=== PATIENT | female | born 1980 | race Caucasian/White ===

== ENCOUNTER 2019-12-28 14:40 | Outpatient (REF) | payer OTHER, SELFPAY ==
[2019-12-28 15:52] LABS: Glucose Urine UA NEG (NEG); Leukocyte Esterase Urine NEG (NEG); Nitrite Urine NEG (NEG); PH 6.5 (5.0-8.0); Urine Blood TRACE (NEG); Urine Ketones NEG (NEG); Urine Protein NEG (NEG-TRACE)
[2019-12-28 15:55] LABS: Appearance Urine CLEAR; Color Urine YELLOW
[2019-12-28 16:05] LABS: Squamous Epithelial Cell Urine TRACE /LPF; WBC Urine 0 /HPF (0-4)
[2019-12-28 16:20] LABS: Anion Gap 13 (12-20); Blood Urea Nitrogen 13 mg/dL (9-16); Calcium 9.2 mg/dL (8.4-10.2); Carbon Dioxide 24 mmol/L (22-29); Chloride 104 mmol/L (96-108); Estimated Glomerular Filt Rate > 60; Potassium 3.8 mmol/l (3.3-5.1); Sodium 137 mmol/L (135-145)
[2019-12-28 16:22] LABS: Creatinine Urine 34.47 mg/dL; Microalbumin Urine < 5.0 mg/L
== END 2019-12-28 14:41 | disposition home or self-care (01) ==
LOC: HO.LAB 14:40
PROVIDERS: PCP Internal Medicine; Visit Provider Internal Medicine Hypertension Specialist
DX: R80.9 Proteinuria, unspecified (principal); R31.9 Hematuria, unspecified
CPT/HCPCS: 80051; 81001; 82043; 82310; 82565; 84520

== ENCOUNTER 2020-01-05 13:29 | Outpatient (REF) | payer OTHER, SELFPAY ==
[2020-01-05 13:48] LABS: COVID-19 Test Negative (Negative)
== END 2020-01-05 13:30 | disposition home or self-care (01) ==
LOC: HO.LAB 13:29
PROVIDERS: Visit Provider Internal Medicine
DX: Z20.828 Contact with and (suspected) exposure to other viral communicable diseases (principal)
CPT/HCPCS: 87635

== ENCOUNTER 2020-01-11 11:35 | Outpatient (REF) | payer OTHER, SELFPAY ==
[2020-01-11 12:01] LABS: COVID-19 Test Negative (Negative)
== END 2020-01-11 11:36 | disposition home or self-care (01) ==
LOC: HO.LAB 11:35
PROVIDERS: Visit Provider Internal Medicine
DX: Z20.828 Contact with and (suspected) exposure to other viral communicable diseases (principal)
CPT/HCPCS: 87635

== ENCOUNTER 2020-01-15 12:14 | Outpatient (REF) | payer OTHER, SELFPAY ==
[2020-01-15 12:31] LABS: COVID-19 Test Negative (Negative)
== END 2020-01-15 12:15 | disposition home or self-care (01) ==
LOC: HO.LAB 12:14
PROVIDERS: Visit Provider Internal Medicine
DX: Z20.828 Contact with and (suspected) exposure to other viral communicable diseases (principal)
CPT/HCPCS: 87635

== ENCOUNTER 2020-02-02 11:26 | Outpatient (REF) | payer OTHER, SELFPAY ==
[2020-02-02 12:22] LABS: COVID-19 Test Negative (Negative)
== END 2020-02-02 11:27 | disposition home or self-care (01) ==
LOC: HO.EMPCOV 11:26
PROVIDERS: Visit Provider Internal Medicine
DX: Z20.828 Contact with and (suspected) exposure to other viral communicable diseases (principal)
CPT/HCPCS: 87635; C9803

== ENCOUNTER 2020-03-18 11:26 | Outpatient (REF) | payer OTHER, SELFPAY ==
[2020-03-18 11:56] LABS: COVID-19 Test Negative (Negative)
== END 2020-03-18 11:27 | disposition home or self-care (01) ==
LOC: HO.EMPCOV 11:26
PROVIDERS: Visit Provider Internal Medicine
DX: Z20.828 Contact with and (suspected) exposure to other viral communicable diseases (principal)
CPT/HCPCS: 87635; C9803

== ENCOUNTER 2021-04-01 17:39 | Outpatient (REF) | payer OTHER, SELFPAY ==
[2021-04-01 18:14] LABS: COVID-19 Test Negative (Negative)
== END 2021-04-01 17:40 | disposition home or self-care (01) ==
LOC: HO.LAB 17:39
PROVIDERS: Visit Provider Internal Medicine
DX: Z20.822 Contact with and (suspected) exposure to COVID-19 (principal)
CPT/HCPCS: 87635

== ENCOUNTER 2021-11-22 14:03 | Outpatient (REF) | payer OTHER, SELFPAY ==
[2021-11-22 14:32] LABS: COVID-19 Test Negative (Negative)
== END 2021-11-22 14:04 | disposition home or self-care (01) ==
LOC: HO.LAB 14:03
PROVIDERS: Absent Provider Internal Medicine; PCP Internal Medicine; Visit Provider Internal Medicine
DX: Z20.822 Contact with and (suspected) exposure to COVID-19 (principal)
CPT/HCPCS: 87635

== ENCOUNTER 2021-11-25 11:11 | Outpatient (REF) | payer OTHER, SELFPAY ==
[2021-11-25 11:59] LABS: COVID-19 Test Negative (Negative); IDNOW Serial# 16C4AD1C
== END 2021-11-25 11:12 | disposition home or self-care (01) ==
LOC: HO.LAB 11:11
PROVIDERS: Visit Provider Internal Medicine
DX: Z20.822 Contact with and (suspected) exposure to COVID-19 (principal)
CPT/HCPCS: 87635

== ENCOUNTER 2021-11-29 14:40 | Outpatient (REF) | payer OTHER, SELFPAY ==
[2021-11-29 15:39] LABS: Influenza A PCR NEGATIVE (Negative); Influenza B PCR NEGATIVE (Negative); Resp Syncy Virus RNA Qual PCR NEGATIVE (Negative); SARS COV2 PCR INHOUSE NEGATIVE (Negative)
== END 2021-11-29 14:41 | disposition home or self-care (01) ==
LOC: HO.LAB 14:40
PROVIDERS: PCP Internal Medicine; Visit Provider Internal Medicine
DX: Z20.822 Contact with and (suspected) exposure to COVID-19 (principal)
CPT/HCPCS: 0241U

== ENCOUNTER 2022-05-03 12:21 | Outpatient (REF) | payer OTHER, SELFPAY ==
[2022-05-03 12:49] LABS: COVID-19 Test Negative (Negative); IDNOW Serial# 16C4AD1C
== END 2022-05-03 12:22 | disposition home or self-care (01) ==
LOC: HO.LAB 12:21
PROVIDERS: Visit Provider Internal Medicine
DX: Z20.822 Contact with and (suspected) exposure to COVID-19 (principal)
CPT/HCPCS: 87635

== ENCOUNTER 2022-12-30 07:58 | Outpatient (REF) | payer OTHER, SELFPAY ==
[2022-12-30 11:18] LABS: Microalbum/Creatinine Ratio Ur 44.7 ug/mg cr (<30)
== END 2022-12-30 07:59 | disposition home or self-care (01) ==
LOC: HO.LAB 07:58
PROVIDERS: PCP Internal Medicine; Visit Provider Internal Medicine
DX: Z00.00 Encounter for general adult medical examination without abnormal findings (principal); I10 Essential (primary) hypertension; M72.2 Plantar fascial fibromatosis; R80.8 Other proteinuria; Z90.710 Acquired absence of both cervix and uterus
CPT/HCPCS: 36415; 80053; 80061; 82043; 82570; 85025

== ENCOUNTER 2023-01-19 11:33 | Outpatient (REF) | payer OTHER, SELFPAY ==
--- NOTE | ~2023-01-19 | MM_ITS ---
EXAMINATION: MM SCREENING DIGITAL BREAST TOMOSYNTHESIS, BILATERAL CLINICAL INFORMATION: Screening. Asymptomatic. COMPARISON: Mammography: This is a baseline study. TECHNIQUE: Digital breast tomosynthesis is performed in both the craniocaudal and mediolateral oblique views along with computer-aided detection (CAD). Synthesized 2D images are generated from the tomosynthesis. FINDINGS: There are scattered areas of fibroglandular density (ACR BI-RADS breast composition Category b). There are no significant masses, abnormal calcifications, or other abnormalities. MM/MM tomosynthesis screening BI IMPRESSION: No mammographic evidence of malignancy. ASSESSMENT: BI-RADS BI-RADS 1 - Negative RECOMMENDATION: Routine annual mammography screening. 1 year F/U This examination should not preclude the clinical evaluation of a suspicious palpable abnormality. This patient's information was entered into a reminder system with a target due date for their next mammogram.
== END 2023-01-19 11:34 | disposition home or self-care (01) ==
LOC: HO.MAMMO 11:33
PROVIDERS: PCP Internal Medicine; Visit Provider Internal Medicine
DX: Z12.31 Encounter for screening mammogram for malignant neoplasm of breast (principal)
CPT/HCPCS: 77063; 77067

== ENCOUNTER → 2023-01-19 11:45 | Outpatient (BNV) | payer OTHER, SELFPAY | PROVIDERS: PCP Internal Medicine; Visit Provider Radiology Diagnostic Radiology | DX: Z12.31 Encounter for screening mammogram for malignant neoplasm of breast (principal) | CPT/HCPCS: 77063; 77067 ==

== ENCOUNTER 2024-05-30 14:09 | Outpatient (REF) | payer OTHER, SELFPAY ==
[2024-05-30 14:27] LABS: MANUAL DIFF FLAG NO
[2024-05-30 14:36] LABS: Basophils Percent Auto 0.2 % (0-2); Eosinophils Percent Auto 0.3 % (0-4); Hematocrit 39.5 % (37.0-47.0); Imm Gran Abs Auto 0.05 X10*3/uL (0.00-0.03); Imm Gran Pct Auto 0.5 % (0.0-0.4); Lymphocytes Absolute Auto 1.2 X10*3/uL (1.2-4.9); Mean Corpuscular HGB Conc 35.4 g/dl (31.0-35.0); Mean Corpuscular Hemoglobin 31.6 pg (27.0-33.0); Mean Corpuscular Volume 89.2 fL (80.0-98.0); Mean Platelet Volume 10.1 fL (9.4-12.3); Monocytes Absolute Auto 0.5 X10*3/uL (0.1-1.2); Monocytes Percent Auto 4.4 % (2-11); Neutrophils Absolute Auto 9.1 x10*3/uL (2.0-8.3); Neutrophils Percent Auto 83.6 % (45-73); Platelet Count 258 X10*3/uL (160-400); Red Blood Count 4.43 X10*6/uL (4.20-5.50); Red Cell Distribution Width 12.3 % (11.0-16.0); White Blood Count 10.9 X10*3/uL (4.8-10.8)
[2024-05-30 15:16] LABS: Erythrocyte Sedimentation Rate 3 MM/HR (0-20)
[2024-05-30 15:51] LABS: Rheumatoid Factor < 13.0 IU/mL (<15.0)
[2024-05-30 15:58] LABS: Alanine Aminotransferase 14 U/L (0-31); Albumin Level 4.1 g/dL (3.5-5.0); Anion Gap 10 (12-20); Aspartate Amino Transferase 20 U/L (5-31); Bilirubin Total 0.3 mg/dL (0.0-1.0); Blood Urea Nitrogen 13 mg/dL (9-16); Calcium 9.6 mg/dL (8.4-10.2); Carbon Dioxide 26 mmol/L (22-29); Chloride 109 mmol/L (96-108); Estimated Glomerular Filt Rate > 60; Glucose Random 92 mg/dL (60-115); Sodium 141 mmol/L (135-145); Total Protein 7.1 g/dL (6.5-8.0)
[2024-05-30 18:22] LABS: Alkaline Phosphatase 61 U/L (39-117)
[2024-05-31 18:54] LABS: Anti DNA DS Antibody <1 IU/mL; Antibody to SS-A Antigen <1.0 NEG AI (<1.0 NEG); Antibody to SS-B Antigen <1.0 NEG AI (<1.0 NEG)
[2024-06-05 10:13] LABS: Anti Nuclear Antibody Screen NEGATIVE (NEGATIVE)
== END 2024-05-30 14:10 | disposition home or self-care (01) ==
LOC: HO.LAB 14:09
PROVIDERS: PCP Internal Medicine; Visit Provider Physician Assistant
DX: L30.9 Dermatitis, unspecified (principal)
CPT/HCPCS: 36415; 80053; 85025; 85652; 86038; 86225; 86235; 86431

== ENCOUNTER 2024-06-23 14:03 | Outpatient (REF) | payer OTHER, SELFPAY ==
[2024-06-23 15:21] LABS: Thyroid Stimulating Hormone 1.18 uIU/mL (0.32-4.0)
== END 2024-06-23 14:04 | disposition home or self-care (01) ==
LOC: HO.LAB 14:03
PROVIDERS: PCP Internal Medicine; Visit Provider Internal Medicine
DX: I10 Essential (primary) hypertension (principal); R10.31 Right lower quadrant pain; R80.8 Other proteinuria
CPT/HCPCS: 36415; 84443

== ENCOUNTER 2024-07-12 11:16 | Outpatient (AMB) | payer OTHER, SELFPAY ==
[2024-07-12 11:22] VITALS: BP 136/86; PULSE 68; TEMP 36.3; O2SAT 99; BMI 28.4
--- NOTE | 2024-07-12 11:22 | A.OFFPC_ITS ---
Vital Signs 07/12/24 11:22 Height 5 ft 3 in Weight 160 lb 6 oz BMI 28.4 BP 136/86 Blood Pressure Location Rt brachial Position Sitting Pulse 68 Pulse Source Pulse Oximeter Temp 97.3 F Temp Source Temporal Artery Scan Pulse Oximetry (%) 99 Oxygen Delivery Method Room Air Intake Visit Reasons: establish care Market Survey Representative Required: No Accompanied by: Self / Same As Patient Allergies No Known Allergies [No Known Allergies*] Allergy (Verified 07/12/24 11:30) Medication List - Last Reconciled 07/12/24 by Zhang Daniels PA-C No Known Home Meds Tobacco use date assessed: 07/12/24 Dental Screening Dental Screen Date: 07/12/24 Did you have a dental visit in the last 12 months?: Yes Did you have a dental problem in the last 6 months where you did not have access to dental care?: No Was dental information given to patient?: Patient has dentist HPI [facility] HPI Details The patient is a 44-year-old female presenting to [facility] with concerns about kidney function and recent dermatological issues. Proteinurea: She has a past medical history of proteinuria and hematuria, previously treated with lisinopril, but has not engaged in follow-up with nephrology for several years. She discontinued lisinopril due to adverse effects, namely dizziness. ? Dermatitis : In January of last year, the patient developed a rash and subsequent hair loss. Evaluation by dermatology determined a diagnosis of dermatitis, supported by a biopsy. She reports significant hair loss from her scalp. Allergy testing identified multiple contact allergies, impacting her ability to use standard topical products. The patient also notes prior thorough screening for autoimmune conditions and thyroid dysfunction, all of which returned normal results. Additionally, the patient's family has a significant history of cancer; her mother from widespread squamous cell carcinoma, and her uncle succumbed to oral cancer. Despite this family history, there is no known familial history of colon cancer. She has resumed smoking cigars after prior cessation, consuming about two to three cigars daily. [facility] Family History (Updated 07/12/24 @ 11:38 by Zhang Daniels PA-C) Mother Squamous cell cancer of buccal mucosa Social History (Updated 07/12/24 @ 11:39 by Zhang Daniels PA-C) Housing: House Patient Tobacco Use Status: Current someday Tobacco user Tobacco use type: Cigar e-Cigarette/Vaping Use: Never Used service: No Current occupational status: employed Current occupation: [employer] Cognitive needs: No Hearing needs: No Vision needs: No Questionnaire PHQ-9 Over the last 2 weeks, how often have you been bothered by any of the following problems? 1. Little interest or pleasure in doing things: not at all 2. Feeling down, depressed, or hopeless: not at all 3. Trouble falling or staying asleep, or sleeping too much: not at all 4. Feeling tired or having little energy: several days 5. Poor appetite or overeating: not at all 6. Feeling bad about yourself - or that you are a failure or have let yourself or your family down: not at all 7. Trouble concentrating on things, such as reading the newspaper or watching television: not at all 8. Moving or speaking so slowly that other people could have noticed. Or the opposite - being so fidgety or restless that you have been moving around a lot more than usual: not at all 9. Thoughts that you would be better off or of hurting yourself in some way: not at all Total score: 1 Depression Screening Interpretation: Negative Depression Screening Done: Yes 61736 - PHQ-9 Billing: Yes Source: Developed by Drs. Anthony Ochoa, Angela Mesa, Bart Lyons and colleagues, with an educational aria from [employer]. Thrive Questionnaire Date Thrive assessed: 07/12/24 I am a: Patient What is your living situation today?: I have a steady place to live Within the past 12 months, did the food you bought not last and you didn't have the money to get more?: Never true Within the past 12 months, did you worry whether your food would run out before you got money to buy more?: Never true Do you have trouble paying for medicines?: No Do you have trouble getting transportation to medical appointments?: No Do you have trouble paying your heating and electricity bill?: No Do you have trouble taking care of your child, family member or friend?: No Do you have trouble with day-to-day activities such as bathing, preparing meals, shopping, managing finances, etc.?: No Are you currently unemployed and looking for a job?: No Are you interested in more education?: No Please select the resources that you would like help with: None Currently or been in a relationship where the following occur: No concerns reported THRIVE Score: 0 AUDIT C Alcohol Use Questionnaire (AUDIT-C) 1. How often do you have a drink containing alcohol?: 4 or more times a week 2. How many drinks containing alcohol do you have on a typical day when you are drinking?: 1 or 2 3. How often do you have six or more drinks on one occasion?: Never Total Score: 4 JOYA-7 AMB Questionnaire JOYA-7 Date JOYA - 7 assessed: 07/12/24 Feeling nervous, anxious, or on edge: 0 = Not at all Not being able to stop or control worryin = Not at all Worrying too much about different things: 0 = Not at all Trouble relaxin = Not at all Being so restless that it is hard to sit still: 0 = Not at all Becoming easily annoyed or irritable: 0 = Not at all Feeling afraid as if something awful might happen: 0 = Not at all Total JOYA-7 score (0-4 normal; 5-9 mild; 10-14 moderate; 15-21 severe): 0 Source: Developed by Drs. Anthony Ochoa, Angela Mesa, Bart Lyons and colleagues, with an educational aria from [employer]. JOYA-7 Assessment Billing JOYA-7 Assessment Tool: JOYA-7 Assessment 09884 Physical exam (Primary Care) Vital Signs: Last Vital Signs Temp 97.3 F 07/12/24 11:22 Pulse 68 07/12/24 11:22 BP 136/86 07/12/24 11:22 Pulse Ox 99 07/12/24 11:22 Oxygen Delivery Method Room Air 07/12/24 11:22 BMI result Body Mass Index 28.4 Tobacco/Smoking Status: Tobacco use Status Tobacco use date assessed 07/12/24 07/12/24 11:27 Patient Tobacco Use Status Current someday Tobacco 07/12/24 11:39 Tobacco use type Cigar 07/12/24 11:39 e-Cigarette/Vaping Use Never Used 07/12/24 11:39 Are you ready to quit: Yes Tobacco cessation counseling provided: Yes Items discussed: Nicotine replacement Relapse Prevention: discussed the importance of a supportive environment, discussed negative mood or depression after quitting, weight gain after smoking is common and discussed dietary, exercise and/or lifestyle changes Number of minutes spent counselin CPT code: 41529 - 4-10 Minutes PHQ-9: PHQ-9 Score PHQ-9: Total score 1 07/12/24 11:33 Depression Screening Interpretation: Negative Thrive Assessment: Date of Thrive Assessment Date Thrive assessed 07/12/24 07/12/24 11:27 Currently or been in a relationship where the following occur: No concerns reported Coding Level of Care Code New Pt Level 4 (70071) Diagnoses Proteinuria, unspecified type R80.9 Proteinuria type: unspecified Screening for diabetes mellitus (DM) Z13.1 Cervical cancer screening Z12.4 Menopausal state N95.1 Acute dermatitis L30.9 Smoker F17.200 Additional Codes JOYA-7 Assessment Billing - JOYA-7 Assessment Tool: JOYA-7 Assessment 30094 ([id number]) PHQ-9 - 55843 - PHQ-9 Billing: Yes ([id number]) Vital Signs *Quality* - CPT code: 89940 - 4-10 Minutes ([id number]) Assessment & Plan Assessment & Plan (1) Proteinuria: Code(s): R80.9 - Proteinuria, unspecified Category: Medical Qualifiers: Proteinuria type: unspecified Qualified Code(s): R80.9 - Proteinuria, unspecified Plan: Plans include comprehensive renal function assessment with urinalysis and microalbumin testing due to the patient's history and non-adherence to the previous treatment regimen. Continual monitoring and adjustment based on resultant data will be necessary. (2) Screening for diabetes mellitus (DM): Code(s): Z13.1 - Encounter for screening for diabetes mellitus Category: Medical Plan: As per HPI (3) Cervical cancer screening: Code(s): Z12.4 - Encounter for screening for malignant neoplasm of cervix Category: Medical Plan: Patient willing to be seen by OBGYN for regular care as she has had life guard prolapse in the past. She does report having a hysterectomy previously though full or partial is unclear. (4) Menopausal state: Code(s): N95.1 - Menopausal and female climacteric states Category: Medical Plan: Unclear if patient isn't a menopausal state leading to her the above-stated symptoms. Will check FSH and estrogen levels. (5) Acute dermatitis: Code(s): L30.9 - Dermatitis, unspecified Category: Medical Plan: Resolved by dermatological intervention, avoidance strategies for allergens remain crucial. Vitamin, hormone assessments will guide further treatment. (6) Smoker: Code(s): F17.200 - Nicotine dependence, unspecified, uncomplicated Category: Social Hx Plan: Discussed cessation support; patient encouraged lifestyle changes, potential nicotine replacement therapy. Orders: Orders Microalbumin, Random (w Creat) 07/12/24 R80.9 - Proteinuria, unspecified Vitamin D 25-OH Total 07/12/24 N95.1 - Menopausal and female climacteric states Follicle Stimulating Hormone 07/12/24 N95.1 - Menopausal and female climacteric states MM screening mammo BI 07/12/24 Z12.31 - Encounter for screening mammogram for malignant neoplasm of breast Comprehensive [place]. Panel Fast 07/12/24 Z13.1 - Encounter for screening for diabetes mellitus Complete Blood Count no Diff 07/12/24 Z13.1 - Encounter for screening for diabetes mellitus Vitamin B12 and Folate 07/12/24 E53.8 - Deficiency of other specified B group vitamins, N95.1 - Menopausal and female climacteric states Estrogen 07/12/24 N95.1 - Menopausal and female climacteric states Referrals [facility] Referral Z12.4 - Encounter for screening for malignant neoplasm of cervix Cologuard Test Z12.11 - Encounter for screening for malignant neoplasm of colon
== END 2024-07-12 11:55 | disposition home or self-care (01) ==
LOC: HO.HMCH 11:17
PROVIDERS: PCP Physician Assistant; Visit Provider Physician Assistant
DX: R80.9 Proteinuria, unspecified (principal); Z13.1 Encounter for screening for diabetes mellitus; Z12.4 Encounter for screening for malignant neoplasm of cervix; N95.1 Menopausal and female climacteric states; L30.9 Dermatitis, unspecified; F17.200 Nicotine dependence, unspecified, uncomplicated

== ENCOUNTER → 2024-07-12 11:16 | Outpatient (BNVA) | payer OTHER, SELFPAY | PROVIDERS: PCP Physician Assistant; Visit Provider Physician Assistant | DX: R80.9 Proteinuria, unspecified (principal); N95.1 Menopausal and female climacteric states; L30.9 Dermatitis, unspecified; F17.200 Nicotine dependence, unspecified, uncomplicated | CPT/HCPCS: 96127 ==

== ENCOUNTER 2024-09-26 09:56 | Outpatient (REF) | payer OTHER, SELFPAY ==
[2024-09-26 10:23] LABS: Hematocrit 41.0 % (37.0-47.0); Hemoglobin 14.8 g/dl (12.0-16.0); Mean Corpuscular HGB Conc 36.1 g/dl (31.0-35.0); Mean Corpuscular Hemoglobin 31.8 pg (27.0-33.0); Mean Corpuscular Volume 88.2 fL (80.0-98.0); NRBC Abs Auto 0.000 X10*3/uL (0.0-0.012); NRBC Pct Auto 0.0 /100WBC (0.0-0.2); Platelet Count 203 X10*3/uL (160-400); Red Blood Count 4.65 X10*6/uL (4.20-5.50); White Blood Count 5.4 X10*3/uL (4.8-10.8)
[2024-09-26 11:14] LABS: Alanine Aminotransferase 11 U/L (0-31); Albumin Level 4.3 g/dL (3.5-5.0); Alkaline Phosphatase 56 U/L (39-117); Anion Gap 11 (12-20); Aspartate Amino Transferase 16 U/L (5-31); Blood Urea Nitrogen 10 mg/dL (9-16); Calcium 8.9 mg/dL (8.4-10.2); Carbon Dioxide 26 mmol/L (22-29); Chloride 106 mmol/L (96-108); Estimated Glomerular Filt Rate > 60; Potassium 4.0 mmol/L (3.3-5.1); Sodium 139 mmol/L (135-145); Total Protein 6.5 g/dL (6.5-8.0)
[2024-09-26 11:25] LABS: Folate 10.7 ng/mL (> or = 4.0); Vitamin B12 258 pg/mL (200-900)
[2024-09-26 11:51] LABS: Microalbum/Creatinine Ratio Ur 58.2 ug/mg cr (<30)
[2024-09-27 05:53] LABS: Follicle Stimulating Hormone 9.8 mIU/mL
== END 2024-09-26 09:57 | disposition home or self-care (01) ==
LOC: HO.LAB 09:56
PROVIDERS: PCP Physician Assistant; Visit Provider Physician Assistant
DX: Z13.1 Encounter for screening for diabetes mellitus (principal); R80.9 Proteinuria, unspecified; N95.1 Menopausal and female climacteric states; E53.8 Deficiency of other specified B group vitamins
CPT/HCPCS: 36415; 80053; 82043; 82306; 82570; 82607; 82672; 82746; 83001; 85027